=== PATIENT | female | born 1980 | race African-American/Black ===

== ENCOUNTER 2016-07-31 10:06 | Emergency (ER) | payer MEDICAID ==
[~2016-07-31] VITALS: Ht 165.1 cm; Wt 77.1 kg
[~2016-07-31 10:06] MED LIST: AMPH20CA3 PO; CITA40TA22 PO; OXCA150T5 PO; TRAZ-147 PO
[2016-07-31 10:24] VITALS: BP 144/82
== END 2016-07-31 10:32 | disposition home or self-care (01) ==
LOC: ER 10:08
DX: J20.9 Acute bronchitis, unspecified (principal); F31.9 Bipolar disorder, unspecified; F17.200 Nicotine dependence, unspecified, uncomplicated; Z87.01 Personal history of pneumonia (recurrent)
CPT/HCPCS: 99283; A4606; Z7610

== ENCOUNTER 2016-10-19 04:56 | Emergency (ER) | payer MEDICAID ==
[~2016-10-19] VITALS: Ht 157.5 cm; Wt 61.2 kg
[2016-10-19 05:21] VITALS: BP 103/65
[2016-10-20] MEDS ORDERED: NEOM10DR11 RIGHT EAR (07:49)
== END 2016-10-19 05:35 | disposition home or self-care (01) ==
LOC: ER 05:00
DX: H60.91 Unspecified otitis externa, right ear (principal); F31.9 Bipolar disorder, unspecified; F17.200 Nicotine dependence, unspecified, uncomplicated
CPT/HCPCS: 99283; A4606; Z7610

== ENCOUNTER 2016-10-20 01:29 | Emergency (ER) | payer MEDICAID ==
[~2016-10-20] VITALS: Ht 157.5 cm; Wt 61.2 kg
--- NOTE | 2016-10-20 04:05 | NUR ---
to bed 4 ambulatory c/o R ear pain x5 days, worse since last night radiating to R jaw with swelling noted. pt aaox4 no acute distress noted, resp even and unlabored. pending er md hinkle.
--- NOTE | 2016-10-20 04:11 | NUR ---
er md at bedside to eval pt with orders received.
[2016-10-20] MEDS ORDERED: DEXAMETHASONE SOD PHOSPHATE 10 MG/ML VIAL ONE (04:20)
[2016-10-20] MEDS ORDERED: MORPHINE SULFATE INJ 4 MG/ML DISP.SYRIN ONE ×2 (04:20→11:25)
[2016-10-20] MEDS ORDERED: ONDANSETRON HCL/PF 4 MG/2 ML VIAL ONE (04:20)
--- NOTE | 2016-10-20 04:29 | NUR ---
MEDICATED PT ORDERED
[2016-10-20] MEDS ORDERED: DEXAMETHASONE SOD PHOSPHATE 10 MG/ML VIAL IV ONE (04:30)
[2016-10-20] MEDS ORDERED: MORPHINE SULFATE INJ 2 MG/ML DISP.SYRIN IV ONE ×2 (04:30→11:30)
[2016-10-20] MEDS ORDERED: ONDANSETRON HCL/PF 4 MG/2 ML VIAL IVP ONE (04:30)
[2016-10-20 04:40] LABS: BASOPHILS % (AUTO) 0.1 % (0.0-2.0); EOSINOPHILS # (AUTO) 0.2 /CMM (0.0-0.7); EOSINOPHILS % (AUTO) 1.6 % (0.0-6.0); HEMATOCRIT 41 % (33-45); HEMOGLOBIN 14.1 g/dL (11.5-14.8); LYMPHOCYTES # (AUTO) 1.6 /CMM (0.8-4.8); LYMPHOCYTES % (AUTO) 13.4 % (20.0-44.0); MEAN CORPUSCULAR HEMOGLOBIN 31 PG (26.0-33.0); MEAN CORPUSCULAR HGB CONC 34 g/dl (31.0-36.0); MEAN CORPUSCULAR VOLUME 90 fL (82-100); MONOCYTES # (AUTO) 0.5 /CMM (0.1-1.30); MONOCYTES % (AUTO) 3.9 % (2.0-12.0); PLATELET COUNT (AUTO) 350 /CMM (150-450); RDW COEFFICIENT OF VARIATION 13.1 (11.5-15.0); RED BLOOD CELL COUNT(AUTO) 4.62 MIL/uL (4.0-5.2); WHITE BLOOD COUNT (AUTO) 12.3 K/uL (4.3-11.0)
[2016-10-20 04:50] LABS: CREATININE 0.8 mg/dL (0.6-1.3); POTASSIUM 3.7 mmol/L (3.5-5.1)
[2016-10-20] MEDS ORDERED: CIPROFLOXACIN IV RTU 200 ML IV ONE (06:54)
[2016-10-20] MEDS ORDERED: IV SET PRIMARY PUMP SET 1 EA INFUS.SET MC ONE (06:54)
[2016-10-20] MEDS ORDERED: CIPROFLOXACIN IV RTU 400 MG in PREMIX 1 EA IV SCH (07:00)
[2016-10-20] MEDS ORDERED: NEOM10DR11 RIGHT EAR (07:49)
--- NOTE | 2016-10-20 08:19 | NUR ---
CALLED CHERYL CARRILLO [phone] PER JESSICA WE ARE TO EPIC
--- NOTE | 2016-10-20 08:29 | NUR ---
REPORT GIVEN TO PAU RN FROM 3W FOR CONTINUITY OF CARE.
--- NOTE | 2016-10-20 09:22 | NUR ---
amada from [facility] called and stated [facility] is expected to have bed for patient, fax [phone] attn to amada, all clinical information. Dr. wild accepting to [facility].
--- NOTE | 2016-10-20 09:34 | NUR ---
faxed notes to amada for review
--- NOTE | 2016-10-20 13:00 | NUR ---
RECIEVED A CALL FROM MARCELO (GROUP FITNESS DEPARTMENT HEAD AT [facility]), I PROVIDED PATIENT WEIGHT & HEIGHT. SHE NOTIFIED ME SHE WILL CALL BACK WITH TRANSFER INFORMATION.
--- NOTE | 2016-10-20 13:23 | NUR ---
STILL AWAITING FOR TRASFER INFO. PATIENT'S VSS
--- NOTE | 2016-10-20 14:27 | NUR ---
PATIENT WILL GO TO BED 44-[facility]. ETA ELVIS
--- NOTE | 2016-10-20 14:36 | NUR ---
AMBULANCE FOR PATIENT WILL ARRIVE @ 1530 PER MARCELO FROM [facility].
[2016-10-20 15:13] VITALS: BP 107/69
--- NOTE | 2016-10-20 15:18 | NUR ---
REPORT GIVEN TO CYNTHIA LYMAN FOR [facility]
--- NOTE | 2016-10-20 15:18 | NUR ---
PATIENT WAS PCIKED UP BY RESULTS ENGINEER TO BE TRANSPORTED TO [facility],. [facility]
== END 2016-10-20 15:18 | disposition short-term general hospital (02) ==
LOC: ER 01:33
DX: H60.91 Unspecified otitis externa, right ear (principal); F31.9 Bipolar disorder, unspecified; F17.200 Nicotine dependence, unspecified, uncomplicated
CPT/HCPCS: 36415; 70486; 80048; 83605; 85025; 85652; 86140; 87040 ×2; 87081; 96365; 96375; 99285; A4216; A4606; J0744; J1100; J2270 ×2; J2405; Z7610

== ENCOUNTER 2016-12-02 22:06 | Emergency (ER) | payer MEDICAID ==
[~2016-12-02] VITALS: Ht 160 cm; Wt 59.0 kg
[~2016-12-02 22:06] MED LIST changes: -AMPH20CA3 PO; -CITA40TA22 PO; +NEOM10DR11 RIGHT EAR; -OXCA150T5 PO; -TRAZ-147 PO
--- NOTE | 2016-12-02 22:34 | NUR ---
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 RIGHT HAND SWELLING NOTED. PT AOX3 RR EVEN AND UNLABORED. NO SOB NOTED. NAD NOTED. NO NVD AT THIS TIME. PT NOT DIAPHORETIC. PT WAITING FOR MD SAUCEDO.
--- NOTE | 2016-12-02 23:11 | NUR ---
DR. DAS AT BEDSIDE
[2016-12-02] MEDS ORDERED: ACETAMINOPHEN ES 500 MG TABLET ONE (23:16)
--- NOTE | 2016-12-02 23:19 | NUR ---
RADIOLOGY AT BEDSIDE FOR XRAY
[2016-12-02] MEDS ORDERED: ACETAMINOPHEN 325 MG TABLET PO ONE (23:30)
[2016-12-03 00:25] VITALS: BP 116/70
--- NOTE | 2016-12-03 00:26 | NUR ---
Patient discharged to home in stable condition. Written and verbal after care instructions given. Patient verbalizes understanding of instruction. Pt ambulatory with a steady gait. VSS, NAD noted on DC. Denies complaint on DC.
== END 2016-12-03 00:28 | disposition home or self-care (01) ==
LOC: ER 22:07
DX: S62.306A Unspecified fracture of fifth metacarpal bone, right hand, initial encounter for closed fracture (principal); F17.200 Nicotine dependence, unspecified, uncomplicated; F31.9 Bipolar disorder, unspecified; W22.8XXA Striking against or struck by other objects, initial encounter; Y93.89 Activity, other specified; Y92.89 Other specified places as the place of occurrence of the external cause; Y99.9 Unspecified external cause status
CPT/HCPCS: 73130-TC; A4606; Z7610

== ENCOUNTER 2016-12-17 14:13 | Emergency (ER) | payer MEDICAID ==
[~2016-12-17] VITALS: Ht 160 cm; Wt 56.7 kg
[2016-12-17] MEDS ORDERED: NAPROXEN 250 MG TABLET PO STA (14:28)
[2016-12-17] MEDS ORDERED: HYDROCODONE/APAP 5/325MG 1 EACH TABLET PO STA (14:28)
[2016-12-17] MEDS ORDERED: HYDROCODONE/APAP 5/325MG 1 EACH TABLET ONE (14:35)
[2016-12-17] MEDS ORDERED: NAPROXEN 250 MG TABLET ONE (14:35)
--- NOTE | 2016-12-17 14:49 | NUR ---
PT TAKEN TO XRAY.
[2016-12-17 16:31] VITALS: BP 107/57
--- NOTE | 2016-12-17 16:31 | NUR ---
Patient discharged to home in stable condition. Written and verbal after care instructions given. Patient verbalizes understanding of instruction.
== END 2016-12-17 16:32 | disposition home or self-care (01) ==
LOC: ER 14:14
DX: S32.019A Unspecified fracture of first lumbar vertebra, initial encounter for closed fracture (principal); F31.9 Bipolar disorder, unspecified; F17.200 Nicotine dependence, unspecified, uncomplicated; W11.XXXA Fall on and from ladder, initial encounter; Y93.89 Activity, other specified; Y92.89 Other specified places as the place of occurrence of the external cause; Y99.9 Unspecified external cause status
CPT/HCPCS: 72100; 99284; A4606; Z7610

== ENCOUNTER 2017-03-27 08:08 | Emergency (ER) | payer MEDICAID ==
[~2017-03-27] VITALS: Ht 160 cm; Wt 54.4 kg
--- NOTE | 2017-03-27 08:15 | NUR ---
DROVE SELF BY CAR. C/O N/V DIARRHEA X 2 Days. aao4.
[2017-03-27] MEDS ORDERED: ONDANSETRON HCL/PF 4 MG/2 ML VIAL IVP ONE (09:00)
[2017-03-27] MEDS ORDERED: KETOROLAC TROMETHAMINE INJ 30 MG/ML VIAL IV ONE (09:00)
[2017-03-27] MEDS ORDERED: IV NS 0.9% 1,000 ML BAG IV ONE (09:00)
[2017-03-27] MEDS ORDERED: ONDANSETRON HCL/PF 4 MG/2 ML VIAL ONE (09:19)
[2017-03-27 09:27] LABS: APPEARANCE,URINE Slightly Cloudy (CLEAR); BILIRUBIN,URINE SMALL (NEGATIVE); BLOOD, URINE Large Ery/uL (NEGATIVE); KETONES,URINE Negative (NEGATIVE); LEUKOCYTE ESTERASE ,URINE Negative (NEGATIVE); NITRITE, URINE Negative (NEGATIVE); PROTEIN,URINE 30 mg/dl (NEGATIVE); UGLUCOSE Negative (NEGATIVE); UROBILINOGEN,URINE 0.2 EU/dL (0.2)
[2017-03-27 09:29] LABS: COLOR,URINE RED (YELLOW)
[2017-03-27 09:37] LABS: CALCIUM, SERUM 9.3 mg/dL (8.5-10.1); CREATININE 0.8 mg/dL (0.6-1.3); POTASSIUM 3.6 mmol/L (3.5-5.1)
[2017-03-27 09:38] LABS: BACTERIA,URINE Few /HPF (None Seen); RBC,URINE 21-50 /HPF (0-2); SQUAMOUS EPITHELIAL CELL,UR Few /HPF (None Seen)
[2017-03-27 09:39] LABS: ALBUMIN 3.7 g/dL (3.4-5.0); BILIRUBIN,DIRECT 0.1 mg/dL (0.0-0.2); BILIRUBIN,TOTAL 0.5 mg/dL (0.2-1.0); TOTAL PROTEIN, SERUM 7.4 g/dL (6.4-8.2)
--- NOTE | 2017-03-27 11:03 | NUR ---
D/C IV. DC HOME. PT REFUSED TORADOL. C/O MINIMAL PAIN AT PRESENT.
[2017-03-27 11:06] VITALS: BP 110/62
[2017-03-27 11:59] LABS: RED BLOOD CELL COUNT(AUTO) 4.53 MIL/uL (4.0-5.2); WHITE BLOOD COUNT (AUTO) 6.9 K/uL (4.3-11.0)
[2017-03-27 12:00] LABS: BASOPHILS % (AUTO) 1.1 % (0.0-2.0); EOSINOPHILS % (AUTO) 1.5 % (0.0-6.0); HEMATOCRIT 41 % (33-45); HEMOGLOBIN 13.5 g/dL (11.5-14.8); LYMPHOCYTES % (AUTO) 18.4 % (20.0-44.0); MEAN CORPUSCULAR HEMOGLOBIN 30 PG (26.0-33.0); MEAN CORPUSCULAR HGB CONC 33 g/dl (31.0-36.0); MEAN CORPUSCULAR VOLUME 90 fL (82-100); MONOCYTES % (AUTO) 4.6 % (2.0-12.0); NEUTROPHILS % (AUTO) 74.4 % (43.0-81.0); PLATELET COUNT (AUTO) 314 /CMM (150-450); RDW COEFFICIENT OF VARIATION 12.2 (11.5-15.0)
[2017-03-27 12:03] LABS: BASOPHILS # (AUTO) 0.1 /CMM (0.0-0.2); EOSINOPHILS # (AUTO) 0.1 /CMM (0.0-0.7); LYMPHOCYTES # (AUTO) 1.3 /CMM (0.8-4.8); MONOCYTES # (AUTO) 0.3 /CMM (0.1-1.30); NEUTROPHILS # (AUTO) 5.1 /CMM (1.8-8.9)
== END 2017-03-27 10:56 | disposition home or self-care (01) ==
LOC: ER 08:10
DX: R11.2 Nausea with vomiting, unspecified (principal); N23 Unspecified renal colic; F31.9 Bipolar disorder, unspecified; Z87.01 Personal history of pneumonia (recurrent); F17.200 Nicotine dependence, unspecified, uncomplicated
CPT/HCPCS: 36415; 80048; 80076; 81001; 83690; 84703; 85025; 87077; 87086; 87186; 96361; 96374; 99284; 99406; A4606; J2405; J7030; Z7610; 81000-TC

== ENCOUNTER 2017-04-29 07:35 | Emergency (ER) | payer MEDICAID ==
[~2017-04-29] VITALS: Ht 160 cm; Wt 59.0 kg
[2017-04-29 07:43] VITALS: BP 134/67
[2017-04-29] MEDS ORDERED: KETOROLAC TROMETHAMINE INJ 30 MG/ML VIAL ONE (08:27)
[2017-04-29] MEDS ORDERED: KETOROLAC TROMETHAMINE INJ 60 MG/2 ML VIAL IM ONE (08:30)
--- NOTE | 2017-04-29 12:00 | NUR ---
PATIENT VERBALIZED SI-- NO SPECIFIC PLAN. MD CASTELLON MADE AWARE
[2017-04-29 12:32] LABS: BASOPHILS # (AUTO) 0.1 /CMM (0.0-0.2); BASOPHILS % (AUTO) 0.7 % (0.0-2.0); EOSINOPHILS # (AUTO) 0.2 /CMM (0.0-0.7); EOSINOPHILS % (AUTO) 2.3 % (0.0-6.0); HEMATOCRIT 39 % (33-45); HEMOGLOBIN 13.3 g/dL (11.5-14.8); LYMPHOCYTES # (AUTO) 2.5 /CMM (0.8-4.8); MEAN CORPUSCULAR HEMOGLOBIN 31 PG (26.0-33.0); MEAN CORPUSCULAR HGB CONC 34 g/dl (31.0-36.0); MEAN CORPUSCULAR VOLUME 89 fL (82-100); MONOCYTES # (AUTO) 0.5 /CMM (0.1-1.30); NEUTROPHILS # (AUTO) 4.3 /CMM (1.8-8.9); PLATELET COUNT (AUTO) 371 /CMM (150-450); RED BLOOD CELL COUNT(AUTO) 4.36 MIL/uL (4.0-5.2); WHITE BLOOD COUNT (AUTO) 7.6 K/uL (4.3-11.0)
[2017-04-29 12:34] LABS: APPEARANCE,URINE Cloudy (CLEAR); BILIRUBIN,URINE Negative (NEGATIVE); BLOOD, URINE Moderate Ery/uL (NEGATIVE); COLOR,URINE Yellow (YELLOW); KETONES,URINE Trace (NEGATIVE); LEUKOCYTE ESTERASE ,URINE Negative (NEGATIVE); NITRITE, URINE Negative (NEGATIVE); PH,URINE 6.5 (5.0-8.0); PROTEIN,URINE Trace mg/dl (NEGATIVE); UGLUCOSE Negative (NEGATIVE); UROBILINOGEN,URINE 0.2 EU/dL (0.2)
[2017-04-29 12:43] LABS: CARBON DIOXIDE 29 mmol/L (21-32); CHLORIDE 106 mmol/L (98-107); CREATININE 0.7 mg/dL (0.6-1.3); GLUCOSE 90 mg/dL (74-106); SODIUM SERUM 141 mmol/L (136-145); UREA NITROGEN, BLOOD 18 mg/dL (7-18)
[2017-04-29 12:49] LABS: ACETAMINOPHEN 0 ug/ml (10-30); ALANINE AMINOTRANSFERASE 21 U/L (12-78); ALBUMIN 3.7 g/dL (3.4-5.0); ALCOHOL, BLOOD < 3 mg/dL (0-0); ALKALINE PHOSPHATASE 60 U/L (46-116); ASPARTATE AMINOTRANSFERASE 15 U/L (15-37); BILIRUBIN,TOTAL 0.2 mg/dL (0.2-1.0); SALICYLATE 0.6 mg/dL (2.8-20.0); TOTAL PROTEIN, SERUM 7.5 g/dL (6.4-8.2)
[2017-04-29 12:53] LABS: BACTERIA,URINE Moderate /HPF (None Seen); SQUAMOUS EPITHELIAL CELL,UR Many /HPF (None Seen); WBC,URINE 0-2 /HPF (0-3)
--- NOTE | 2017-04-29 15:13 | NUR ---
PATIENT DISCHARGED TO [facility]. [facility]
== END 2017-04-29 11:35 | disposition home or self-care (01) ==
LOC: ER 07:38
DX: H72.92 Unspecified perforation of tympanic membrane, left ear (principal); F31.9 Bipolar disorder, unspecified; F17.200 Nicotine dependence, unspecified, uncomplicated
CPT/HCPCS: 36415; 80048; 80076; 80305; 80329; 81001; 84703; 85025; 87086; 96372; 99285; A4606; G0480 ×2; J1885; Z7610; 81000-TC

== ENCOUNTER 2019-07-25 16:23 | Emergency (ER) | payer BC, OTHER ==
[~2019-07-25] VITALS: Ht 160 cm; Wt 72.6 kg
--- NOTE | 2019-07-25 18:00 | NUR ---
Pt updated with plan of care awaiting per TEST ENGINEERING INTERN Caitlyn "MARIEL will call us back" Pt reclining in [facility] Status quo
[2019-07-25 18:30] VITALS: BP 100/60
== END 2019-07-25 19:27 | disposition home or self-care (01) ==
LOC: ER 16:31
DX: R07.89 Other chest pain (principal); R07.81 Pleurodynia; J22 Unspecified acute lower respiratory infection; Z20.828 Contact with and (suspected) exposure to other viral communicable diseases
CPT/HCPCS: 36415; 71045-TC; U0002

== ENCOUNTER 2019-12-25 10:31 | Emergency (ER) | payer BC, MEDICAID, OTHER ==
[~2019-12-25] VITALS: Ht 160 cm; Wt 68.0 kg
[2019-12-25] MEDS ORDERED: HYDROCODONE/APAP 5/325MG TABLET ONE (10:49)
[2019-12-25] MEDS: HYDROCODONE/APAP 5/325MG TABLET PO ONE (10:53)
--- NOTE | 2019-12-25 10:54 | NUR ---
"Pain on Right jaw/dental pain xcouple days. COVID + have cough/phlegm chest hurs with coughing" PATIENT AAOX4, AMBULATORY. VSS. SATING WELL ON ROOM AIR, EVEN, UNLABORED RESPIRATIONS.
[2019-12-25 11:33] LABS: BASOPHILS % (AUTO) 0.5 % (0.0-2.0); EOSINOPHILS % (AUTO) 0.6 % (0.0-6.0); HEMATOCRIT 38 % (33-45); HEMOGLOBIN 12.9 g/dL (11.5-14.8); LYMPHOCYTES # (AUTO) 2.1 /CMM (0.8-4.8); LYMPHOCYTES % (AUTO) 48.9 % (20.0-44.0); MEAN CORPUSCULAR HGB CONC 34 g/dl (31.0-36.0); MEAN CORPUSCULAR VOLUME 91 fL (82-100); MONOCYTES # (AUTO) 0.3 /CMM (0.1-1.30); MONOCYTES % (AUTO) 7.6 % (2.0-12.0); NEUTROPHILS # (AUTO) 1.8 /CMM (1.8-8.9); NEUTROPHILS % (AUTO) 42.4 % (43.0-81.0); PLATELET COUNT (AUTO) 175 /CMM (150-450); RED BLOOD CELL COUNT(AUTO) 4.18 MIL/uL (4.0-5.2); WHITE BLOOD COUNT (AUTO) 4.2 K/uL (4.3-11.0)
[2019-12-25 11:42] LABS: CALCIUM, SERUM 8.1 mg/dL (8.5-10.1); CREATININE 0.8 mg/dL (0.6-1.3); POTASSIUM 3.1 mmol/L (3.5-5.1)
[2019-12-25 11:47] LABS: ALBUMIN 3.8 g/dL (3.4-5.0); BILIRUBIN,DIRECT 0.1 mg/dL (0.0-0.2); BILIRUBIN,TOTAL 0.4 mg/dL (0.2-1.0); TOTAL PROTEIN, SERUM 7.3 g/dL (6.4-8.2)
--- NOTE | 2019-12-25 12:07 | NUR ---
Patient discharged to home in stable condition. Written and verbal after care instructions given. Patient verbalizes understanding of instruction.
[2019-12-25 12:09] VITALS: BP 109/67
== END 2019-12-25 12:09 | disposition home or self-care (01) ==
LOC: ER 10:32
DX: R68.84 Jaw pain (principal); Z79.899 Other long term (current) drug therapy
CPT/HCPCS: 36415; 80048-TC; 80076-TC; 85025-TC

== ENCOUNTER 2021-02-12 08:32 | Emergency (ER) | payer BC, OTHER ==
[~2021-02-12] VITALS: Ht 157.5 cm; Wt 72.6 kg
--- NOTE | 2021-02-12 08:52 | NUR ---
THE PATIENT BIS FOR C/O NON-RADIATING L SIDED CHEST PAIN 4/10, NUMBNESS TO BILAT HANDS X 1 WEEK. ALERT AND ORIENTED X4. IN ROOM AIR AND DENIES SOB. RESPIRATION REGULAR AND UNLABORED. ATTACHED TO THE MONITOR.
[2021-02-12 09:00] LABS: BASOPHILS # (AUTO) 0.1 K/uL (0.0-0.2); BASOPHILS % (AUTO) 1.8 % (0.0-2.0); EOSINOPHILS % (AUTO) 1.5 % (0.0-6.0); HEMATOCRIT 39 % (33-45); HEMOGLOBIN 12.9 g/dL (11.5-14.8); LYMPHOCYTES # (AUTO) 2.1 K/uL (0.8-4.8); LYMPHOCYTES % (AUTO) 29.5 % (20.0-44.0); MEAN CORPUSCULAR HGB CONC 33 g/dl (31.0-36.0); MEAN CORPUSCULAR VOLUME 93 fL (82-100); MONOCYTES # (AUTO) 0.5 K/uL (0.1-1.30); MONOCYTES % (AUTO) 7.7 % (2.0-12.0); NEUTROPHILS # (AUTO) 4.2 K/uL (1.8-8.9); NEUTROPHILS % (AUTO) 59.5 % (43.0-81.0); PLATELET COUNT (AUTO) 298 K/uL (150-450); RED BLOOD CELL COUNT(AUTO) 4.14 MIL/uL (4.0-5.2); WHITE BLOOD COUNT (AUTO) 7.1 K/uL (4.3-11.0)
[2021-02-12 09:17] LABS: CALCIUM, SERUM 8.2 mg/dL (8.5-10.1); CARBON DIOXIDE 25 mmol/L (21-32); CHLORIDE 106 mmol/L (98-107); CREATININE 0.7 mg/dL (0.6-1.3); GLUCOSE 85 mg/dL (74-106); POTASSIUM 3.5 mmol/L (3.5-5.1); SODIUM SERUM 139 mmol/L (136-145); UREA NITROGEN, BLOOD 16 mg/dL (7-18)
[2021-02-12] MEDS ORDERED: AZIT500T2 PO (09:39)
[2021-02-12] MEDS ORDERED: PRED20TA GT (09:39)
[2021-02-12] MEDS ORDERED: ALBU8.5H8 INH (09:39)
[2021-02-12 09:55] VITALS: BP 99/62
--- NOTE | 2021-02-12 09:55 | NUR ---
Patient discharged to home in stable condition. Written and verbal after care instructions given. Patient verbalizes understanding of instruction.
== END 2021-02-12 09:55 | disposition home or self-care (01) ==
LOC: ER 08:37
DX: R07.89 Other chest pain (principal); J40 Bronchitis, not specified as acute or chronic; F31.9 Bipolar disorder, unspecified; F17.200 Nicotine dependence, unspecified, uncomplicated
CPT/HCPCS: 36415; 71045-TC; 80048-TC; 84484-TC; 85025-TC

== ENCOUNTER 2021-05-15 08:02 | Emergency (ER) | payer BC, OTHER ==
[~2021-05-15] VITALS: Ht 157.5 cm; Wt 76.2 kg
[~2021-05-15 08:02] MED LIST changes: +ALBU8.5H8 INH; +AZIT500T2 PO; +PRED20TA GT
--- NOTE | 2021-05-15 08:20 | NUR ---
PT CAME TO ER C/O THROAT BURNING, L SIDED CHEST PRESSURE, AND SOB X 1 1/2 WEEK. DENIES HX OF GERD. SHE THINKS ITS FROM "VAPING." AAOX4, BREATHING EVEN AND UNLABORED, NOT IN RESPIRATORY DISTRESS. ASSISTED TO ER BED 6.
--- NOTE | 2021-05-15 08:46 | NUR ---
SEEN AND EXAMINED BY .
[2021-05-15] MEDS ORDERED: MAG HYDROX/AL HYDROX/SIMETH 30 ML UDC ONE (08:59)
[2021-05-15] MEDS ORDERED: LIDOCAINE VISCOUS 2% UD 15 ML UDC ONE (09:00)
[2021-05-15] MEDS ORDERED: LIDOCAINE VISCOUS 2% UD 15 ML UDC MM ONE (09:00)
[2021-05-15] MEDS ORDERED: MAG HYDROX/AL HYDROX/SIMETH 30 ML UDC PO ONE (09:00)
--- NOTE | 2021-05-15 09:33 | NUR ---
LAYING IN BED COMFORTABLY, VS STABLE. WILL CONTINUE TO MONITOR
[2021-05-15] MEDS ORDERED: OMEP40CA21 PO (10:29)
[2021-05-15] MEDS ORDERED: Magic Mouthwash PO ×2 (10:29→10:34)
[2021-05-15 10:42] VITALS: BP 111/74
--- NOTE | 2021-05-15 10:42 | NUR ---
Patient discharged to home in stable condition. Written and verbal after care instructions given. Patient verbalizes understanding of instruction.
== END 2021-05-15 10:43 | disposition home or self-care (01) ==
LOC: ER 08:13
DX: K21.00 Gastro-esophageal reflux disease with esophagitis, without bleeding (principal); F31.9 Bipolar disorder, unspecified; F17.200 Nicotine dependence, unspecified, uncomplicated; Z79.899 Other long term (current) drug therapy
CPT/HCPCS: 71045-TC

== ENCOUNTER 2023-04-10 14:36 | Emergency (ER) | payer BC, MEDICAID, OTHER ==
[~2023-04-10] VITALS: Ht 160 cm; Wt 78.9 kg
[~2023-04-10 14:36] MED LIST changes: +Magic Mouthwash PO; +OMEP40CA21 PO
[2023-04-10] MEDS ORDERED: PANTOPRAZOLE 40 MG VIAL ONE (15:00)
[2023-04-10] MEDS ORDERED: MAG HYDROX/AL HYDROX/SIMETH 30 ML UDC ONE (15:00)
[2023-04-10] MEDS ORDERED: KETOROLAC TROMETHAMINE 15 MG/ML VIAL IV ONE (15:00)
[2023-04-10] MEDS ORDERED: LIDOCAINE VISCOUS 2% UD 15 ML UDC MM ONE (15:00)
[2023-04-10] MEDS ORDERED: LIDOCAINE VISCOUS 2% UD 15 ML UDC ONE (15:00)
[2023-04-10] MEDS ORDERED: MAG HYDROX/AL HYDROX/SIMETH 30 ML UDC PO ONE (15:00)
[2023-04-10] MEDS ORDERED: PANTOPRAZOLE 40 MG VIAL IV ONE (15:00)
[2023-04-10] MEDS ORDERED: KETOROLAC TROMETHAMINE 15 MG/ML VIAL ONE (15:00)
[2023-04-10 15:37] LABS: BASOPHILS # (AUTO) 0.1 K/uL (0.0-0.2); EOSINOPHILS # (AUTO) 0.2 K/uL (0.0-0.7); EOSINOPHILS % (AUTO) 2.3 % (0.0-6.0); HEMATOCRIT 38 % (33-45); HEMOGLOBIN 12.7 g/dL (11.5-14.8); LYMPHOCYTES # (AUTO) 2.1 K/uL (0.8-4.8); LYMPHOCYTES % (AUTO) 30.1 % (20.0-44.0); MEAN CORPUSCULAR HEMOGLOBIN 30 PG (26.0-33.0); MEAN CORPUSCULAR HGB CONC 34 g/dl (31.0-36.0); MEAN CORPUSCULAR VOLUME 89 fL (82-100); MONOCYTES # (AUTO) 0.4 K/uL (0.1-1.30); MONOCYTES % (AUTO) 6.3 % (2.0-12.0); NEUTROPHILS # (AUTO) 4.2 K/uL (1.8-8.9); NEUTROPHILS % (AUTO) 59.3 % (43.0-81.0); PLATELET COUNT (AUTO) 278 K/uL (150-450); RED BLOOD CELL COUNT(AUTO) 4.21 MIL/uL (4.0-5.2); RED CELL DISTRIBUTION WIDTH 12.3 % (11.5-15.0); WHITE BLOOD COUNT (AUTO) 7.1 K/uL (4.3-11.0)
[2023-04-10 15:46] LABS: CALCIUM, SERUM 9.1 mg/dL (8.5-10.1); CARBON DIOXIDE 27 mmol/L (21-32); CHLORIDE 100 mmol/L (98-107); CREATININE 1.2 mg/dL (0.6-1.3); GLUCOSE 103 mg/dL (74-106); POTASSIUM 3.7 mmol/L (3.5-5.1); SODIUM SERUM 136 mmol/L (136-145); UREA NITROGEN, BLOOD 16 mg/dL (7-18)
[2023-04-10 16:57] VITALS: BP 103/63; TEMP 98.1; O2SAT 97
== END 2023-04-10 16:57 | disposition home or self-care (01) ==
LOC: ER 14:44
DX: K20.90 Esophagitis, unspecified without bleeding (principal); R07.9 Chest pain, unspecified; F31.9 Bipolar disorder, unspecified
CPT/HCPCS: 99285; 96374; 71045; 96375; 93005 ×2; 85025; 80048; 36415; 84484; C9113; J1885

== ENCOUNTER 2023-05-09 19:29 | Emergency (ER) | payer MEDICAID ==
[~2023-05-09] VITALS: Ht 160 cm; Wt 79.8 kg
[2023-05-09 19:42] VITALS: TEMP 97
[2023-05-09] MEDS ORDERED: PANTOPRAZOLE 40 MG VIAL ONE (20:09)
[2023-05-09] MEDS ORDERED: MAG HYDROX/AL HYDROX/SIMETH 30 ML UDC ONE (20:09)
[2023-05-09] MEDS ORDERED: LIDOCAINE VISCOUS 2% UD 15 ML UDC ONE (20:10)
[2023-05-09 20:24] LABS: BASOPHILS # (AUTO) 0.1 K/uL (0.0-0.2); EOSINOPHILS # (AUTO) 0.2 K/uL (0.0-0.7); EOSINOPHILS % (AUTO) 2.2 % (0.0-6.0); HEMATOCRIT 38 % (33-45); HEMOGLOBIN 12.6 g/dL (11.5-14.8); LYMPHOCYTES # (AUTO) 2.9 K/uL (0.8-4.8); MEAN CORPUSCULAR HEMOGLOBIN 30 PG (26.0-33.0); MEAN CORPUSCULAR HGB CONC 33 g/dl (31.0-36.0); MEAN CORPUSCULAR VOLUME 89 fL (82-100); MONOCYTES # (AUTO) 0.5 K/uL (0.1-1.30); MONOCYTES % (AUTO) 5.7 % (2.0-12.0); NEUTROPHILS # (AUTO) 4.4 K/uL (1.8-8.9); NEUTROPHILS % (AUTO) 55.1 % (43.0-81.0); PLATELET COUNT (AUTO) 314 K/uL (150-450); RED BLOOD CELL COUNT(AUTO) 4.24 MIL/uL (4.0-5.2); RED CELL DISTRIBUTION WIDTH 12.4 % (11.5-15.0)
[2023-05-09] MEDS ORDERED: MAG HYDROX/AL HYDROX/SIMETH 30 ML UDC PO ONE (20:30)
[2023-05-09] MEDS ORDERED: PANTOPRAZOLE 40 MG VIAL IV ONE (20:30)
[2023-05-09] MEDS ORDERED: LIDOCAINE VISCOUS 2% UD 15 ML UDC MM ONE (20:30)
[2023-05-09 20:40] LABS: CARBON DIOXIDE 25 mmol/L (21-32); CHLORIDE 102 mmol/L (98-107); GLUCOSE 93 mg/dL (74-106); POTASSIUM 3.7 mmol/L (3.5-5.1); SODIUM SERUM 135 mmol/L (136-145); UREA NITROGEN, BLOOD 13 mg/dL (7-18)
[2023-05-09] MEDS ORDERED: OMEP40CA21 PO (21:10)
[2023-05-09 21:27] VITALS: BP 119/72; O2SAT 99
== END 2023-05-09 21:27 | disposition home or self-care (01) ==
LOC: ER 19:31
DX: R07.9 Chest pain, unspecified (principal); Z90.710 Acquired absence of both cervix and uterus; Z90.49 Acquired absence of other specified parts of digestive tract
CPT/HCPCS: 99285; 96374; 71045; 93005 ×2; 85025; 80048; 36415; 84484; C9113

== ENCOUNTER 2025-03-27 10:49 | Emergency (ER) | payer MEDICAID, OTHER ==
[~2025-03-27] VITALS: Ht 157.5 cm; Wt 74.8 kg
[2025-03-27 11:01] VITALS: BP 117/78; TEMP 97.9; O2SAT 96
[2025-03-27] MEDS ORDERED: KETOROLAC TROMETHAMINE 15 MG/ML VIAL ONE (11:45)
[2025-03-27] MEDS: KETOROLAC TROMETHAMINE 15 MG/ML VIAL IM ONE (11:47)
[2025-03-27] MEDS ORDERED: BENZ-13 PO (13:25)
[2025-03-27] MEDS ORDERED: IBUP-1955 PO (13:25)
== END 2025-03-27 13:30 | disposition home or self-care (01) ==
LOC: ER 11:01
DX: J06.9 Acute upper respiratory infection, unspecified (principal); R07.89 Other chest pain; F17.200 Nicotine dependence, unspecified, uncomplicated; Z79.899 Other long term (current) drug therapy; Z87.01 Personal history of pneumonia (recurrent); Z90.49 Acquired absence of other specified parts of digestive tract; Z90.710 Acquired absence of both cervix and uterus; Z20.822 Contact with and (suspected) exposure to COVID-19
CPT/HCPCS: 99285; 71045; 87426; 96372; 93005; 87804 ×2; J1885